=== PATIENT | male | born 1985 | race African-American/Black ===

== ENCOUNTER 2019-02-20 10:50 | Emergency (ER) | payer OTHER ==
[~2019-02-20] VITALS: Ht 177.8 cm; Wt 117.9 kg
[~2019-02-20 10:50] MED LIST: BENZTROPINE MESY2 MG ORAL; DEPAKOTE500 MG PO; FLOMAX0.4 MG ORAL; LATUDA80 MG PO; NORCO 5-325 TA1 EACH ORAL; RISPERDAL2 MG ORAL; RISPERIDONE3 MG ORAL; VITAMIN D-32000 UNI1 PO; ZOFRAN4 M1 ORAL
[2019-02-20 11:10] VITALS: BP 111/70
[2019-02-20] MEDS ORDERED: FUROSEMIDE20 M1 ORAL (11:21)
--- NOTE | 2019-02-20 11:22 | Emergency Room Report ---
History of Present Illness General Chief Complaint: Edema Source: Patient Present Illness HPI 33-year-old male history of dementia, with his provider, presents with chronic edema of the bilateral lower extremities, patient denies any chest pain shortness of breath, no orthopnea, chronic edema is mild, no aggravating or alleviating factors, severity is mild. Patient apparently sits a lot all day, minimal movement, no recent travel, patient is not very active. Allergies: Coded Allergies: No Known Allergies (Unverified , 11/07/14) Patient History Limited by: medical condition - Schizophrenia Past Medical History: see triage record Reviewed Nursing Documentation: PMH: Agreed; PSxH: Agreed Nursing Documentation-PMH Past Medical History: No History, Except For Hx Hypertension: No Hx Pacemaker: No Hx Asthma: No Hx COPD: No Hx Diabetes: No Hx Cancer: No Hx Gastrointestinal Problems: No Hx Dialysis: No Hx Neurological Problems: No Hx Cerebrovascular Accident: No Hx Seizures: Yes Review of Systems Constitutional: Denies: chills, fever Eye: Denies: blurred vision, double vision ENT: Denies: throat pain, nasal discharge Respiratory: Denies: cough, shortness of breath Cardiovascular: Reports: edema - Pedal; Denies: chest pain, palpitations Gastrointestinal: Denies: abdominal pain, diarrhea, nausea, vomiting Genitourinary: Denies: dysuria, pain Musculoskeletal: Denies: back pain, muscle pain Skin: Denies: rash, lesions Neurological: Denies: headache, focal weakness Hematologic/Lymphatic: Denies: easy bleeding, easy bruising All Other Systems: negative except mentioned in HPI Physical Exam Vital Signs Date Time Temp Pulse Resp B/P (MAP) Pulse Ox O2 Delivery O2 Flow Rate FiO2 02/20/19 10:55 98.4 91 17 111/70 (84) 95 Room Air Sp02 EP Interpretation: reviewed, normal General Appearance: well appearing, no apparent distress, alert Head: normocephalic, atraumatic Eyes: bilateral eye PERRL, bilateral eye EOMI ENT: uvula midline, moist mucus membranes Neck: supple, thyroid normal, supple/symm/no masses Respiratory: lungs clear, no respiratory distress, no retraction, no accessory muscle use Cardiovascular #1: normal peripheral pulses, regular rate, rhythm, no gallop, no murmur, edema - Trace pedal edema Gastrointestinal: non tender, soft, no guarding, no rebound Musculoskeletal: normal inspection Neurologic: alert, oriented x3 Psychiatric: mood/affect normal Skin: no rash, warm/dry Medical Decision Making Diagnostic Impression: Primary Impression: Edema ER Course 33-year-old male presents with trace pedal edema, low suspicion for CHF, ACS. patient most likely with peripheral edema secondary to lack of movement findings are trace. Will trial lasix. dispo home w/ return precautions Last Vital Signs Date Time Temp Pulse Resp B/P (MAP) Pulse Ox O2 Delivery O2 Flow Rate FiO2 02/20/19 10:55 98.4 91 17 111/70 (84) 95 Room Air Disposition: HOME, SELF-CARE Condition: Stable Scripts Furosemide* (LASIX*) 20 Mg Tablet 20 MG ORAL DAILY, #3 TAB Prov: Shay Yee MD 02/20/19 Referrals: [facility] Patient Instructions: Edema, Camm-us-Sxms, Peripheral Edema Additional Instructions: The patient was provided with discharge instructions, notified to follow-up with a primary care doctor and or specialist in the next 24-48 hours, and to return to the ED if they have worsening of their symptoms. Please note that this report is being documented using [employer] technology. This can lead to erroneous entry secondary to incorrect interpretation by the dictating instrument. Please follow-up with your primary care doctor and obtain an echocardiogram as an outpatient please follow-up with cardiology, will attempt a trial of Lasix to see if swelling will come down, no evidence of heart failure. Shay Yee MD Feb 20, 2019 11:22
--- NOTE | 2019-02-20 11:22 | NUR ---
ED Nurse Note: pt walked in with ocular care technician c/o bilateral lower extremitu swelling, denies hx of kidney proble, denies sob, pt stated its been there for a week, denies pain. pt is seen by patrick. will continue to monitor
[2019-02-20 11:26] VITALS: BP 111/70
--- NOTE | 2019-02-20 11:26 | NUR ---
ER DISCHARGE NOTE: Patient is cleared to be discharged per ERMD, pt is aox4, on room air, with stable vital signs. pt was given dc and prescription instructions, pt was able to verbalize understanding, pt id band removed without complications. pt is able to ambulate with steady gait. pt took all belongings.
== END 2019-02-20 11:26 | disposition home or self-care (01) ==
LOC: EMR 11:20
DX: R60.0 Localized edema (principal)
CPT/HCPCS: 99282